=== PATIENT | female | born 1970 | race Caucasian/White ===

== ENCOUNTER 2021-03-31 11:58 | Emergency (ER) | payer OTHER ==
[~2021-03-31] VITALS: Ht 167.6 cm; Wt 97.5 kg
--- NOTE | 2021-03-31 11:58 | NUR ---
[id number] C/O HEADACHE AND HIGH BLOOD PRESSURE AFTER AN ARGUEMENT AT A [employer]. PT IS A&OX4 AND STABLE. 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 BREATHING IS REGULAR AND UNLABORED. WILL CONTINUE TO MONITOR.
[2021-03-31] MEDS ORDERED: SUMATRIPTAN SUCCINATE 6 MG/0.5 ML VIAL SQ ONE ×2 (12:23→12:30)
[2021-03-31] MEDS ORDERED: ACETAMINOPHEN ES 500 MG TABLET ONE (12:24)
[2021-03-31] MEDS ORDERED: ACETAMINOPHEN ES 500 MG TABLET PO ONE (12:30)
--- NOTE | 2021-03-31 12:37 | NUR ---
Note [email or web address] in EDM - 03/31/21 at 1238 by VAHEO [id number] C/O HEADACHE AND HIGH BLOOD PRESSURE AFTER AN ARGUEMENT AT A [employer]. PT IS A&OX4 AND STABLE. PT BLOOD PRESSURE WAS ELEVATED UPON ARRIVAL AND WAS ATTACHED TO MUCK BOSS AND PULSE OX. BREATHING IS REGULAR AND UNLABORED. WILL CONTINUE TO MONITOR.
--- NOTE | 2021-03-31 12:37 | NUR ---
PT TAKEN TO CT
[2021-03-31] MEDS ORDERED: IBUP-1957 PO (13:38)
[2021-03-31] MEDS ORDERED: SUMA100T16 PO (13:38)
--- NOTE | 2021-03-31 13:51 | NUR ---
Patient discharged to home in stable condition. Written and verbal after care instructions given. Patient verbalizes understanding of instruction.
[2021-03-31 13:52] VITALS: BP 182/92
== END 2021-03-31 13:52 | disposition home or self-care (01) ==
LOC: ER 12:37
DX: F43.9 Reaction to severe stress, unspecified (principal); R51.9 Headache, unspecified; I10 Essential (primary) hypertension
CPT/HCPCS: 70450; 96372; 99284; J3030